=== PATIENT | female | born 1970 | race Caucasian/White ===

== ENCOUNTER 2019-05-17 19:51 | Emergency (ER) | payer SELFPAY ==
[~2019-05-17] VITALS: Ht 157.5 cm; Wt 72.7 kg
[2019-05-17] MEDS ORDERED: HydrOXYzine PAMOATE 25 MG CAPSULE PO ONE (21:00)
[2019-05-17 22:05] VITALS: BP 120/78
== END 2019-05-17 22:20 | disposition home or self-care (01) ==
LOC: EMS 19:53
DX: F41.9 Anxiety disorder, unspecified (principal)
CPT/HCPCS: 93005